=== PATIENT | male | born 1960 | race Caucasian/White ===

== ENCOUNTER 2021-09-09 18:41 | Emergency (ER) | payer OTHER ==
[2021-09-09] MEDS ORDERED: Bacitracin Oint 1 GM U/D Packet TOP ONE (19:23)
[2021-09-09] MEDS ORDERED: Diphtheria,Pertussis(Acell),Tetanus Vaccine 0.5 ML Syringe IM ONE (19:23)
--- NOTE | 2021-09-09 20:00 | EDM.PDOC ---
ED HPI GENERAL MEDICAL PROBLEM - General Chief Complaint: Skin Complaint Stated Complaint: KNEE INJURY Time Seen by Provider: 09/09/21 19:07 Source of Information: Reports: Patient History Limitations: Reports: No Limitations - History of Present Illness INITIAL COMMENTS - FREE TEXT/NARRATIVE: Is a 61-year-old male presenting to the ED for evaluation of a laceration to his left knee. Patient was carrying gypsum board with his son up some stairs and tripped falling on a T-square causing a laceration over the patella of the left knee. Patient wrapped the area up and came in for evaluation. The injury occurred about 3 hours prior to arrival. Bleeding was under control upon arrival. Patient thinks that will need a stitch to bring it back together. He is in need of a booster for his tetanus. Denies any other injuries. Left Knee Pain Score (Numeric/FACES): 1 - Related Data Allergies Allergy/AdvReac Type Severity Reaction Status Date / Time No Known Allergies Allergy Verified 09/09/21 19:12 Home Meds: Home Meds Atovaquone 1,500 mg PO DAILY 09/09/21 [History] Calcium Carbonate/Vitamin D3 [Calcium 500-Vit D3 200 Tablet] 1 tab PO DAILY 09/09/21 [History] mycophenolate mofetiL [Cellcept] 1 tab PO ASDIRECTED 09/09/21 [History] Past Medical History Cardiovascular History: Reports: Blood Clots/VTE/DVT, Heart Murmur, Hypertension Other Cardiovascular History: DVT - Respiratory History: Reports: Asthma, PE, Sleep Apnea Gastrointestinal History: Reports: GERD Genitourinary History: Reports: Other (See Below) Other Genitourinary History: lupus nephritis. FSGS - 2014 Oncologic (Cancer) History: Reports: Non-Hodgkin's Lymphoma - Infectious Disease History Infectious Disease History: Reports: Chicken Pox, Shingles - Past Surgical History HEENT Surgical History: Reports: Cataract Surgery, Naso-Sinus Surgery, Tonsillectomy GI Surgical History: Reports: Colonoscopy, EGD, Hernia, Abdominal Social & Family History - Tobacco Use Tobacco Use Status *Q: Never Tobacco User - Caffeine Use Caffeine Use: Reports: Coffee, Soda, Tea - Recreational Drug Use Recreational Drug Use: No ED ROS GENERAL - Review of Systems Review Of Systems: See Below Constitutional: Reports: No Symptoms Musculoskeletal: Reports: Other (Left knee pain and laceration) Skin: Reports: Wound (3.2 cm laceration over the left patella) Neurological: Reports: No Symptoms ED EXAM, SKIN/RASH Exam: See Below Exam Limited By: No Limitations General Appearance: Alert, No Apparent Distress Extremities: Normal Inspection, Normal Range of Motion, Normal Capillary Refill Neurological: Alert, Oriented, Normal Cognition, No Motor/Sensory Deficits Skin: Wound/Incision (3.2 cm laceration that is an avulsion type laceration r ight over the left patella) ED SKIN PROCEDURES - Laceration/Wound Repair Left Anterior Knee Appearance: Subcutaneous Distal NVT: Neuro & Vascular Intact Anesthetic Type: Local Local Anesthesia - Lidocaine (Xylocaine): 1% with EPI Local Anesthetic Volume: 3cc Skin Prep: Other (Soap and water) Exploration/Debridement/Repair: Wound Explored, In a Bloodless Field, Explored to Base Closed with: Sutures Lac/Wound length In cm: 3.2 Suture Size: 4-0 # of Sutures: 5 Suture Type: Nylon, Interrupted Sterile Dressing Applied: Provider Tetanus Status Addressed: Yes Complications: No Course - Vital Signs Last Recorded V/S: Last Vital Signs Temp 36.4 C 09/09/21 19:10 Pulse 66 09/09/21 19:10 Resp 16 09/09/21 19:10 BP 169/107 H 09/09/21 19:10 Pulse Ox 98 09/09/21 19:10 - Orders/Labs/Meds Orders: Active Orders 24 hr Category Date Time Status Vaccine to be Administered/Admin Charge [RC] ASDIRECTED Care 09/09/21 19:23 Ordered Meds: Medications Discontinued Medications Generic Name Dose Route Start Last Admin Trade Name Molly PRN Reason Stop Dose Admin Bacitracin 1 dose 09/09/21 19:23 09/09/21 19:28 Bacitracin Oint 1 Gm U/D Packet TOP 09/09/21 19:24 1 dose ONETIME ONE Administration Diphtheria/Tetanus/Acell Pertussis 0.5 ml 09/09/21 19:23 Diphtheria,Pertussis(Acell),Tetanus Vaccine 0.5 Ml Syringe IM 09/09/21 19:24 .ONCE ONE Departure - Departure Time of Disposition: 19:58 Disposition: Home, Self-Care 01 Clinical Impression: Laceration of left knee Qualifiers: Encounter type: initial encounter Qualified Code(s): S81.012A - Laceration without foreign body, left knee, initial encounter - Discharge Information Instructions: Laceration Care, Adult Referrals: Evan Frost MD [Primary Care Provider] - Care Plan Goals: Please keep an eye on the wound and apply a light coating of bacitracin or Neosporin to it twice daily. You may just cover it with a regular bandage starting tomorrow. Leave the dressing in place tonight. The sutures will need to be removed in 10 days which can be either done here in the ER or at the clinic. You typically do not need an appointment to have your sutures removed. If there is any signs of infection please return and we will reevaluate and decide if you need to be on antibiotics. It was great meeting you and perhaps will cross pads with woodworking in the future. Sepsis Event Note (ED) - Evaluation Sepsis Screening Result: No Definite Risk - Focused Exam Vital Signs: Vital Signs Temp Pulse Resp BP Pulse Ox 09/09/21 19:10 36.4 C 66 16 169/107 H 98 - Problem List & Annotations (1) Laceration of left knee SNOMED Code(s): 19949729044079265 Code(s): S81.012A - LACERATION WITHOUT FOREIGN BODY, LEFT KNEE, INIT ENCNTR Status: Acute Priority: Medium Current Visit: Yes Qualifiers: Encounter type: initial encounter Qualified Code(s): S81.012A - Laceration without foreign body, left knee, initial encounter - Problem List Review Problem List Initiated/Reviewed/Updated: Yes - My Orders Last 24 Hours: My Active Orders 09/09/21 19:23 Vaccine to be Administered/Admin Charge [RC] ASDIRECTED - Assessment/Plan Last 24 Hours: My Active Orders 09/09/21 19:23 Vaccine to be Administered/Admin Charge [RC] ASDIRECTED
== END 2021-09-09 20:11 | disposition home or self-care (01) ==
LOC: JP.ED 18:41
DX: S81.012A Laceration without foreign body, left knee, initial encounter (principal); Z23 Encounter for immunization; I10 Essential (primary) hypertension; W17.89XA Other fall from one level to another, initial encounter
CPT/HCPCS: 12002; 90471; 90715; 99282-25

== ENCOUNTER 2022-01-14 03:59 | Emergency (ER) | payer OTHER | END 2022-01-14 06:05 | disposition home or self-care (01) | LOC: JP.ED 03:59 | DX: I13.0 Hypertensive heart and chronic kidney disease with heart failure and stage 1 through stage 4 chronic kidney disease, or unspecified chronic kidney disease (principal); N18.31 Chronic kidney disease, stage 3a; I50.9 Heart failure, unspecified; E87.79 Other fluid overload; D63.1 Anemia in chronic kidney disease; Z79.899 Other long term (current) drug therapy | CPT/HCPCS: 36415; 71046; 71046-26; 80053; 81001; 83880; 85025; 99284; 99285-25 ==